=== PATIENT | male | born 2000 | race African-American/Black ===

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

== ENCOUNTER 2024-03-02 19:39 | Emergency (ER) | payer OTHER, SELFPAY ==
--- NOTE | ~2024-03-02 | CT_ITS ---
Noncontrast CT scan of the cervical spine Technique: Multiple contiguous axial [address] images of the cervical spine were obtained and rec onstructed in 2D sagittal and coronal planes on the acquisition scanner. Dose reduction technique was used on this scan by utilizing automated exposure control, adjustment of the mA and/or kV according to patient size. The dose-length product (DLP) was 249.10 mGy-cm. Clinical History: Pain Findings: No fractures or dislocations. There is mild reversal normal cervical lordosis. The interve rtebral disc spaces are preserved. No prevertebral soft tissue swelling. Impression: No fracture or subluxation of the cervical spine. Mild reversal normal cervical lordosis. Reviewed, dictated and finalized at location . Impression: No fracture or subluxation of the cervical spine. Mild reversal normal cervical lordosis.
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
[2024-03-02 19:52] VITALS: BP 142/87; PULSE 55; RESP 20; TEMP 36.7; O2SAT 100
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
[2024-03-03 01:15] VITALS: BP 138/70; PULSE 79; RESP 15; O2SAT 99
== END 2024-03-03 01:16 | disposition home or self-care (01) ==
PROVIDERS: Emergency Provider Physician Assistant
DX: S09.90XA Unspecified injury of head, initial encounter (principal); S16.1XXA Strain of muscle, fascia and tendon at neck level, initial encounter; V43.52XA Car driver injured in collision with other type car in traffic accident, initial encounter
CPT/HCPCS: 70450; 72125; 72131; 99284